=== PATIENT | female | born 1970 | race Caucasian/White ===

== ENCOUNTER 2018-07-28 12:24 | Emergency (ER) | payer BC ==
[2018-07-28 13:31] VITALS: BP 115/63
--- NOTE | 2018-07-28 13:41 | UC ---
UC General HPI - HPI Summary HPI Summary: PT NOTED SOME REDNESS, WARMTH AND TENDERNESS IN HER R GROIN THIS AM AFTER SHOWERING. IT HAS SPREAD. SHE DENIES HX MRSA, TICK BITE, NAUSEA, FEVER AND CHILLS. - History of Current Complaint Chief Complaint: KARENkin Stated Complaint: SKIN COMPLAINT Time Seen by Provider: 07/28/18 13:33 Hx Obtained From: Patient Hx Last Menstrual Period: menopausal Onset/Duration: Gradual Onset Timing: Constant Pain Intensity: 0 Associated Signs & Symptoms: Negative: Abdominal Pain, Dysuria - Allergy/Home Medications Allergies/Adverse Reactions: Allergies Allergy/AdvReac Type Severity Reaction Status Date / Time No Known Allergies Allergy Verified 07/28/18 13:31 PMH/Surg Hx/FS Hx/Imm Hx Previously Healthy: Yes - Surgical History Surgical History: Yes Surgery Procedure, Year, and Place: R ankle, tubal - Family History Known Family History: Positive: Other - dyslipedmia - Social History Alcohol Use: Daily Substance Use Type: None Smoking Status (MU): Heavy Every Day Tobacco Smoker Type: Cigarettes Amount Used/How Often: 1/2 ppd Length of Time of Smoking/Using Tobacco: 30 yrs Have You Smoked in the Last Year: Yes - Immunization History Vaccination Up to Date: Yes Review of Systems All Other Systems Reviewed And Are Negative: No Constitutional: Negative: Fever, Chills Skin: Positive: Rash Gastrointestinal: Negative: Abdominal Pain, Vomiting, Diarrhea, Nausea Genitourinary: Negative: Dysuria Physical Exam Triage Information Reviewed: Yes Appearance: Well-Appearing Vital Signs: Initial Vital Signs Temp 97.6 F 07/28/18 13:26 Pulse 72 07/28/18 13:26 Resp 18 07/28/18 13:26 BP 115/63 07/28/18 13:26 Pulse Ox 98 07/28/18 13:26 Vital Signs Reviewed: Yes Eyes: Positive: Conjunctiva Clear Neck: Positive: Supple, Nontender, No Lymphadenopathy Respiratory: Positive: Lungs clear, Normal breath sounds, No respiratory distress Cardiovascular: Positive: RRR Abdomen Description: Positive: Nontender, No Organomegaly, Soft Bowel Sounds: Positive: Present Musculoskeletal: Positive: ROM Intact - R hip, Other: - no R hip pain Neurological: Positive: Alert Psychological: Positive: Age Appropriate Behavior Skin Exam: Normal Skin: Positive: Rashes - Crease of R groin, R side of mons and lateral aspect of R labia majora have mild swelling, erthema and warmth. Slight R inguinal adenopathy. Course/Dx - Differential Dx - Multi-Symptom Differential Diagnoses: Other - not a bulls eye rash/no hx tick bite. no concern for abscess or fungal infection. no concern for septic joint. no hx mrsa thus will tx for cellulitis with keflex.. - Diagnoses Provider Diagnosis: Cellulitis of right groin Discharge - Sign-Out/Discharge Documenting (check all that apply): Patient Departure All imaging exams completed and their final reports reviewed: No Studies - Discharge Plan Condition: Stable Disposition: HOME Prescriptions: Cephalexin CAP* [Keflex CAP*] 500 mg PO TID 10 Days #30 cap Patient Education Materials: Cellulitis (DC) Referrals: Charlotte Bowie [Primary Care Provider] - Additional Instructions: FOLLOW UP WITH PRIMARY CARE IN 2-3 DAYS FOR A RECHECK. GO TO THE ER FOR ANY WORSENING. - Billing Disposition and Condition Condition: STABLE Disposition: Home
== END 2018-07-28 13:49 | disposition home or self-care (01) ==
LOC: UCCORT 12:24
DX: L03.314 Cellulitis of groin (principal); F17.210 Nicotine dependence, cigarettes, uncomplicated
CPT/HCPCS: 99212; G0463

== ENCOUNTER 2019-04-20 09:07 | Emergency (ER) | payer BC ==
--- OUTSIDE RECORDS SUMMARY | 2019-04-20 10:05 | XMS REPORT | Continuity of Care Document ---
:1970 External Reference #:[id number] Author Name Suhail Wiseman M.D. 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 Medicine Problems Description No Information Available Social History Type Date Description Comments Sex Unknown Tobacco Use Start: Unknown Patient is a current smoker, 1/2 ppd x 30 yrs smokes every day Smoking Status Reviewed: 03/01/19 Patient is a current smoker, 1/2 ppd x 30 yrs smokes every day Allergies, Adverse Reactions, Alerts Description No Known Drug Allergies Medications Description No Active Medications Immunizations Description No Information Available Vital Signs Date Vital Result Comment 03/01/2019 3:36pm Height 67 inches 5'7" Weight 150.00 lb BP Systolic Sitting 110 mmHg BP Diastolic Sitting 74 mmHg Respiratory Rate 14 /min Body Temperature 97.8 F BMI (Body Mass Index) 23.5 kg/m2 Results Description No Information Available Procedures Description No Information Available Medical Devices Description No Information Available Encounters Description No Information Available Assessments Date Code Description Provider 03/01/2019 R53.83 Other fatigue Suhail Wiseman M.D. 03/01/2019 M25.561 Pain in right knee Suhail Wiseman M.D. Plan of Treatment No Information Available Functional Status Description No Information Available Mental Status Description No Information Available Referrals Description No Information Available
[2019-04-20 10:10] VITALS: BP 97/69
--- NOTE | 2019-04-20 10:18 | UC ---
Lower Extremity/Ankle HPI - HPI Summary HPI Summary: 49-year-old female presents with complaints of aggressively worsening right ankle pain over the past 2 days. No known injury. States has had a previous injury to this ankle with an ORIF. Describes pain as a constant aching. Worsens with walking and weightbearing. No alleviating factors however has not taken any [id number]-sry-[id number] analgesics. Denies numbness or tingling. - History of Current Complaint Chief Complaint: UCLowerExtremity Stated Complaint: RIGHT FOOT INJURY Time Seen by Provider: 04/20/19 10:05 Hx Obtained From: Patient Hx Last Menstrual Period: 01/2018 Pain Intensity: 3 - Allergies/Home Medications Allergies/Adverse Reactions: Allergies Allergy/AdvReac Type Severity Reaction Status Date / Time No Known Allergies Allergy Verified 04/20/19 10:06 Home Medications: Home Medications NK [No Home Medications Reported] 04/20/19 [History Confirmed 04/20/19] PMH/Surg Hx/FS Hx/Imm Hx Previously Healthy: Yes - Denies significant PMH - Surgical History Surgical History: Yes Surgery Procedure, Year, and Place: Right Bilateral Malleolar Fractures, ~2013, [place]; Tubal Ligation, 1989, [place] - Family History Known Family History: Positive: Other - dyslipidmia - Social History Occupation: Employed Full-time Lives: With Family Alcohol Use: 3 daily Substance Use Type: None Smoking Status (MU): Heavy Every Day Tobacco Smoker Type: Cigarettes Amount Used/How Often: 1/2 PPD Length of Time of Smoking/Using Tobacco: Since Age 15 Have You Smoked in the Last Year: Yes Household Exposure Type: Cigarettes - Immunization History Vaccination Up to Date: Yes Review of Systems All Other Systems Reviewed And Are Negative: Yes Constitutional: Negative: Fever, Chills Skin: Negative: Bruising Respiratory: Positive: Negative Cardiovascular: Positive: Negative Gastrointestinal: Positive: Negative Genitourinary: Positive: Negative Motor: Negative: Weakness Neurovascular: Negative: Decreased Sensation Musculoskeletal: Positive: Other: - See HPI Neurological/Mental Status: Positive: Negative Physical Exam - Summary Physical Exam Summary: GENERAL APPEARANCE: Well developed, well nourished, alert and cooperative, and appears to be in no acute distress. CARDIAC: Normal S1 and S2. No S3, S4 or murmurs. Rhythm is regular. There is no peripheral edema, cyanosis or pallor. Extremities are warm and well perfused. Capillary refill is less than 2 seconds. Peripheral pulses intact. LUNGS: Clear to auscultation without rales, rhonchi, wheezing or diminished breath sounds. ABDOMEN: Positive bowel sounds. Soft, nondistended, nontender. No guarding or rebound. No masses or hepatosplenomegally. MUSKULOSKELETAL: Normal muscular development. Normal gait. EXTREMITIES: Tenderness to the lateral right ankle. No point tenderness, gross deformity, ecchymosis, or edema. Full ROM. Circulation and sensation intact. SKIN: Skin normal color, texture and turgor with no lesions or eruptions. Triage Information Reviewed: Yes Vital Signs: Initial Vital Signs Temp 98.4 F 04/20/19 10:04 Pulse 86 04/20/19 10:04 Resp 16 04/20/19 10:04 BP 97/69 04/20/19 10:04 Pulse Ox 98 04/20/19 10:04 Vital Signs Reviewed: Yes Diagnostics - Radiology No standard instances Radiology Interpretation Completed By: Radiologist Summary of Radiographic Findings: Order Information: ANKLE RIGHT 3+VWS. HISTORY : pain, past injury w/orif . COMPARISONS: February 29, 2008 VIEWS: 3, Frontal, lateral, and oblique views of the right ankle. FINDINGS: BONE DENSITY: Normal. BONES: The patient is status post internal fixation of the distal fibula and medial malleolus. There is no appreciable hardware failure or osteolysis. 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 ALIGNMENT: There is no dislocation. SOFT TISSUES : Unremarkable. OTHER FINDINGS: None. IMPRESSION: STATUS POST RIGHT ANKLE ORIF. NO ACUTE OSSEOUS INJURY. Lower Extremity Course/Dx - Course Course Of Treatment: 49-year-old female presents with complaints of aggressively worsening right ankle pain over the past 2 days. No known injury. States has had a previous injury to this ankle with an ORIF. Describes pain as a constant aching. Worsens with walking and weightbearing. No alleviating factors however has not taken any [id number]-[id number] analgesics. Denies numbness or tingling. Afebrile. VSS. Patient had tenderness to the lateral right ankle. No point tenderness, gross deformity, ecchymosis, or edema. Full ROM. Circulation and sensation intact. X-ray showed no acute osseous injury with hardware in good alignment. Reviewed results with the patient. Recommending conservative treatment for right ankle arthritis including [id number] analgesics and RICE. She is to follow-up with her primary care provider in 7 days if symptoms persist. Anticipatory guidance and warning symptoms were reviewed with the patient. Verbalizes understanding and agrees with plan of care. - Differential Dx/Diagnosis Differential Diagnosis/HQI/PQRI: Arthritis, Fracture (Closed), Gout, Infection, Sprain, Tendonitis Provider Diagnosis: Arthritis of right ankle Discharge ED - Sign-Out/Discharge Documenting (check all that apply): Patient Departure All imaging exams completed and their final reports reviewed: Yes - Discharge Plan Condition: Stable Disposition: HOME Patient Education Materials: Arthritis (ED) Referrals: Rose García NP [Primary Care Provider] - 7 Days Additional Instructions: The x-ray performed in the clinic today showed no evidence of a fracture. The hardware was in good alignment. Rest the ankle as much as possible. You may continue to walk and bear weight as tolerated. Apply ice to the affected area for 15-20 minutes at least 4 times a day to help with the pain and swelling. Elevate the leg to help reduce any swelling. Take acetaminophen (Tylenol) or ibuprofen (Advil, Motrin) according to directions as needed for pain. Follow up with your primary care provider in 7 days if symptoms do not improve. Seek immediate medical attention if you have severe pain not managed with pain medication, you are unable to walk or bear any weight, develop numbness or tingling in the foot or toes, or have any worsening of symptoms. - Billing Disposition and Condition Condition: STABLE Disposition: Home
== END 2019-04-20 10:35 | disposition home or self-care (01) ==
LOC: UCCORT 09:07
DX: M13.871 Other specified arthritis, right ankle and foot (principal); F17.210 Nicotine dependence, cigarettes, uncomplicated; Z98.890 Other specified postprocedural states
CPT/HCPCS: 99211; G0463